=== PATIENT | female | born 1985 | race Caucasian/White ===

== ENCOUNTER 2024-09-22 11:10 | Emergency (ER) | payer SELFPAY ==
[2024-09-22] MEDS ORDERED: Ibuprofen 200 MG TAB ONE (12:24)
[2024-09-22] MEDS ORDERED: Bicillin LA 1.2 MILLION UNITS/2 ML SYRINGE IM SCH (12:30)
== END 2024-09-22 12:44 | disposition home or self-care (01) ==
LOC: CSHERS 11:10
DX: J02.0 Streptococcal pharyngitis (principal)
CPT/HCPCS: 87430; 96372; 99283; J0561